=== PATIENT | male | born 1965 | race Caucasian/White ===

== ENCOUNTER 2016-11-03 11:41 | Emergency (ER) | payer OTHER ==
[~2016-11-03] VITALS: Ht 172.7 cm; Wt 86.2 kg
[2016-11-03 11:45] VITALS: BP 171/86
--- NOTE | 2016-11-03 11:46 | ED MVC/FALL/TRAUMA COMPLAINT ---
History of Present Illness General Chief Complaint: Fall Stated Complaint: BIBA FALL FROM BOTTOM STAIR, LOW BACK/NECK PAIN Source: patient, EMS Exam Limitations: no limitations Vital Signs & Intake/Output Vital Signs & Intake/Output Vital Signs Date Time Temp Pulse Resp B/P B/P Pulse O2 O2 Flow FiO2 Mean Ox Delivery Rate 11/03 1145 97.7 75 18 171/86 98 Room Air Allergies Coded Allergies: No Known Allergies (11/03/16) Reconcile Medications Cyclobenzaprine HCl 10 MG TABLET 1 TAB PO QPM PRN MUSCLE RELAXOR Ketorolac Tromethamine 10 MG TABLET 1 TAB PO TID PRN PAIN RECEIVED IM IN ER Oxycodone HCl/Acetaminophen (Percocet 5-325 MG Tablet) 5 MG-325 MG TABLET 1 TAB PO BID PRN PAIN Triage Nurses Notes Reviewed? yes Onset: Abrupt Duration: constant Timing: single episode today Severity: severe Severity Numbers: 10 Loss of Consciousness: no loss of consciousness HPI: Patient is a 51-year-old male with a past medical history of chronic neck and chronic back pain with no surgical intervention, chronic spinal stenosis and arthritis of his neck and back it is not currently taking any medications for his past history who presents emergency and the patient was in his normal state of health today patient was ambulating down his steps where the wooden steps had broken patient fell abruptly to the next step below where he fell on his buttocks and had acute onset of sharp stabbing lumbar spine pain. Patient also complains of neck pain after the fall however he denies any head strike. Denies any preceding episode a lightheaded sensation or dizziness. Patient was brought in by ambulance in cervical collar in place. Patient does complain of chronic lower extremity paresthesia from his past medical history and denies any worsening symptoms. Denies any saddle paresthesia or bowel bladder incontinence (PHONG LAIRD) Past History Travel History Traveled to [place] past 21 day No Medical History Any Pertinent Medical History? see below for history Musculoskeletal: chronic back pain, osteoarthritis Surgical History Surgical History: non-contributory Family History Hx Contributory? No (PHONG LAIRD) Review of Systems Review of Systems Constitutional: Reports: no symptoms. Eyes: Reports: no symptoms. Ears, Nose, Throat, Mouth: Reports: no symptoms. Respiratory: Reports: no symptoms. Cardiovascular: Reports: no symptoms. Gastrointestinal/Abdominal: Reports: no symptoms. Genitourinary: Reports: no symptoms. Musculoskeletal: Reports: see HPI, back pain, muscle pain, muscle stiffness, neck pain. Skin: Reports: no symptoms. Neurological/Psychological: Reports: no symptoms. All Other Systems: Reviewed and Negative (PHONG LAIRD) Physical Exam Physical Exam General Appearance: mild distress Comments: HEENT: Normal EENT exam Neck: Cervical collar in place central spinous tenderness in the lateral cervical tenderness noted Back: Normal inspection, generalized point tenderness noted, decreased active range of motion noted Cardiovascular: Regular rate and rhythms no murmurs rubs or gallops, normal JVP Respiratory: Chest nontender. No respiratory distress.breath sounds clear to auscultation bilaterally Abdomen: Soft, nontender nondistended, no appreciable organomegaly. Normal bowel sounds. No ascites Extremity: No edema, no calf tenderness to palpation, normal and equal pulses. Bilateral upper extremity myotomes dermatomes DTRs intact Bilateral lower extremity myotomes intact generalized decreased dermatome sensation Neuro: Alert oriented x3, motor sensory normal, cranial nerves II through XII grossly intact. Skin: No appreciable rash on exposed skin, skin is warm and dry. Psych: Mood and affect is normal, memory and judgment is normal. Core Measures ACS in differential dx? No Severe Sepsis Present: No Septic Shock Present: No (PHONG LAIRD) Progress Differential Diagnosis: aoritic dissection, abd injury, C/T/L spine injury, ext injury, ICH, pelvis injury, pnemothorax, spinal cord injury Plan of Care: Current Medications Sig/Juan Start time Last Medication Dose Stop Time Status Admin Ketorolac 30 MG ONCE ONE 11/03 1230 UNVr Tromethamine 11/03 1231 (Toradol) Patient had no concerns of neurovascular involvement or [facility] [employer]QU[employer] SYNDROME X-rays were unremarkable for osseous injury for where patient was symptomatically tender Cervical spine was removed safely patient had mild decreased active range of motion noted Patient had normal steady gait on discharge Patient was given copies of x-rays and was strongly advised to follow-up with neck and back specialist that he has an establishment with next week Patient also had significant improvement of his pain prior to discharge with morphine (PHONG LAIRD) Diagnostic Imaging: Viewed by Me: Radiology Read. Radiology Impression: no fracture Comments: PATIENT: JASON GARCIA PRESENT AGE: 51 PATIENT ACCOUNT NO: [id number] : 65 LOCATION: [facility] ORDERING PHYSICIAN: PHONG CALVERT SERVICE DATE: 11/03/16 EXAM TYPE: RAD - XRY-CERVICAL SPINE TRAUMA EXAMINATION: XR CERVICAL SPINE CLINICAL INFORMATION: 51-year-old man with fall and neck pain. COMPARISON: None TECHNIQUE: 3 views of the cervical spine were obtained. FINDINGS: There is no evidence of acute cervical spine fracture. Vertebral bodies are normal in height. Alignment is approximately anatomic. Degenerative endplate remodeling, marginal osteophyte formation, and moderate loss of normal disc space is noted at C3-C4, C4-C5, C5-C6, and C6-C7. There is no prevertebral soft tissue swelling. IMPRESSION: No radiographic evidence of acute fracture or traumatic subluxation. Moderate to severe multilevel cervical spondylosis. PATIENT: JASON GARCIA PRESENT AGE: 51 PATIENT ACCOUNT NO: [id number] : 65 LOCATION: [facility] ORDERING PHYSICIAN: PHONG CALVERT SERVICE DATE: 11/03/16 EXAM TYPE: RAD - XRY-LUMBOSACRAL SPINE 4 VIEWS EXAMINATION: XR LUMBOSACRAL SPINE CLINICAL INFORMATION: 51-year-old man with fall and back pain. COMPARISON: None TECHNIQUE: 4 views of the lumbar spine were obtained. FINDINGS: On the lateral film, vertebral bodies remain in normal in height. There is slight degenerative retrolisthesis of L3 on L4. There is moderate loss of normal disc height at L3-L4 and L4-L5 with mild degenerative endplate sclerosis at both levels. Facet arthrosis is worse in the lower lumbar spine. Nonspecific radiodensity projects over the lower pole of the right kidney and could reflect the presence of renal calculi. IMPRESSION: No radiographic evidence of acute fracture or traumatic subluxation. Moderate multilevel spondylosis. (GURU CALVERT,PHONG) Departure Departure Disposition: HOME OR SELF CARE Condition: Stable Clinical Impression Primary Impression: Neck pain Secondary Impressions: Low back pain Additional Instructions: As discussed begin the prescription of ketorolac for pain and inflammation begin the prescription of cyclobenzaprine muscle relaxer at night and begin the prescription of Percocet for breakthrough pain relief. Begin icing the area directly 20 minutes every 2 hours. Activity as tolerated. Follow up next week with your neck and back specialist for further evaluation treatment please provide them with x-ray copies provided to the emergency room. If symptoms worsen return to emergency room Departure Forms: Customer Survey General Discharge Information Prescriptions: Current Visit Scripts Ketorolac Tromethamine 1 TAB PO TID PRN PAIN #15 TAB RECEIVED IM IN ER Cyclobenzaprine HCl 1 TAB PO QPM PRN MUSCLE RELAXOR #7 TAB Oxycodone HCl/Acetaminophen (Percocet 5-325 MG Tablet) 1 TAB PO BID PRN PAIN #8 TAB (PHONG LAIRD) PA/BULWARK CARPENTER Co-Sign Statement Statement: ED Attending supervision documentation- [] I saw and evaluated the patient. I have also reviewed all the pertinent lab results and diagnostic results. I agree with the findings and the plan of care as documented in the PA's/BULWARK CARPENTER's documentation. [X] I have reviewed the ED Record and agree with the PA's/BULWARK CARPENTER's documentation. [] Additions or exceptions (if any) to the PAs/BULWARK CARPENTER's note and plan are summarized below: [] (LETA SAM,ASHLEY Genao)
--- NOTE | 2016-11-03 12:20 | RADIOLOGY REPORT ---
EXAMINATION: XR CERVICAL SPINE CLINICAL INFORMATION: 51-year-old man with fall and neck pain. COMPARISON: None TECHNIQUE: 3 views of the cervical spine were obtained. FINDINGS: There is no evidence of acute cervical spine fracture. Vertebral bodies are normal in height. Alignment is approximately anatomic. Degenerative endplate remodeling, marginal osteophyte formation, and moderate loss of normal disc space is noted at C3-C4, C4-C5, C5-C6, and C6-C7. There is no prevertebral soft tissue swelling. IMPRESSION: No radiographic evidence of acute fracture or traumatic subluxation. Moderate to severe multilevel cervical spondylosis.
--- NOTE | 2016-11-03 12:21 | RADIOLOGY REPORT ---
EXAMINATION: XR LUMBOSACRAL SPINE CLINICAL INFORMATION: 51-year-old man with fall and back pain. COMPARISON: None TECHNIQUE: 4 views of the lumbar spine were obtained. FINDINGS: On the lateral film, vertebral bodies remain in normal in height. There is slight degenerative retrolisthesis of L3 on L4. There is moderate loss of normal disc height at L3-L4 and L4-L5 with mild degenerative endplate sclerosis at both levels. Facet arthrosis is worse in the lower lumbar spine. Nonspecific radiodensity projects over the lower pole of the right kidney and could reflect the presence of renal calculi. IMPRESSION: No radiographic evidence of acute fracture or traumatic subluxation. Moderate multilevel spondylosis.
[2016-11-03] MEDS ORDERED: PERCOCET 5-3251 EACH PO (12:32)
[2016-11-03] MEDS ORDERED: KETOROLAC TROME10 M1 PO (12:32)
[2016-11-03] MEDS ORDERED: CYCLOBENZAPRINE10 M1 PO (12:32)
== END 2016-11-03 12:41 ==
LOC: ERH 11:41
DX: M54.2 Cervicalgia (principal); M54.5 Low back pain
CPT/HCPCS: 72050; 72110; J1885